=== PATIENT | female | born 1945 | race Caucasian/White ===

== ENCOUNTER → 2018-05-29 11:53 | Outpatient (CLI) | payer MEDICARE, OTHER, SELFPAY ==
--- NOTE | 2018-05-29 | DI.MG.S_ITS ---
BILATERAL DIGITAL SCREENING MAMMOGRAM 3D/2D WITH CAD: 05/29/2018 CLINICAL: Routine screening. Comparison is made to exams dated: 05/12/2017 mammogram, 04/11/2016 mammogram, and 03/07/2015 mammogram - [facility]. The tissue of both breasts is heterogeneously dense. This may lower the sensitivity of mammography. Current study was also evaluated with a Computer Aided Detection (CAD) system. There are benign post operative findings in the right breast. No significant masses, calcifications, or other findings are seen in either breast. There has been no significant interval change. IMPRESSION: There is no mammographic evidence of malignancy. A 1 year screening mammogram is recommended. This exam was interpreted at Station ID: [id number]. NOTE: For mammograms, a report in lay terms will be sent to the patient. Approximately 15% of breast malignancies will not be visualized mammographically. In the management of a palpable breast mass, a negative mammogram must not discourage biopsy of a clinically suspicious lesion. Electronically Signed By: Shravan umaña/clarisa:05/29/2018 16:22:20 letter sent: Normal Exam ACR BI-RADS Category 2: Benign Finding(s) 3342F
== END ==
PROVIDERS: Family Provider Internal Medicine; PCP Internal Medicine; Visit Provider Internal Medicine
DX: Z12.31 Encounter for screening mammogram for malignant neoplasm of breast (principal)
CPT/HCPCS: 77063; 77067

== ENCOUNTER 2018-12-23 10:45 | Outpatient (RCR) | payer MEDICARE, OTHER, SELFPAY ==
--- NOTE | 2018-12-13 08:00 | PT.OIE ---
Current Diagnoses Cystocele, unspecified (12/08/18) Pelvic muscle wasting (12/08/18) Other female genital prolapse (12/08/18) Past Medical History (Last Updated 12/06/18 @ 16:51 by Traci Banda) Bladder prolapse (Chronic ~2017) Cataracts, bilateral (Chronic ~2016) Migraines (Chronic ~1959) Tinnitus (Chronic ~2015) Past Surgical History (Last Updated 12/06/18 @ 16:51 by Traci Banda) Anesthesia (Resolved) History of right breast biopsy (Resolved ~2013) History of tonsillectomy (Resolved ~1955) Provider Visit Care Team Role Provider Type Mike Asher MD Primary Care Provider Physician Specialty: Internal Medicine Address: [address] [place], [place] [id number] Email: Lorena Busch MD Attending Provider Physician Specialty: CORN CUTTER OPERATOR Address: [address] [place] [id number] Email: [email or web address] Physical Therapy Initial Evaluation PT-OP-A Visit Information Start: 12/08/18 14:37 Freq: Status: Active Protocol: Document 12/08/18 14:37 [facility] (Rec: 12/08/18 14:49 [facility] [id number]) Out-Patient Physical Therapy Visit Information Visit Information Visit Type Initial Evaluation Visit Note 73 year old female with cystocele and pelvic pressure as the day progresses. She reports her pelvic region feels tired as the day goes on . No c/o urinary incontinence at this time. Visit Start Time 14:30 Visit Stop Time 15:15 Total Visit Minutes 45 Visit Number 1 Evaluation Information Evaluation Date 12/08/18 PT-OP-B Current Condition Start: 12/08/18 14:37 Freq: Status: Active Protocol: Document 12/08/18 14:37 [facility] (Rec: 12/08/18 14:49 [facility] [id number]) Current Condition History of Current Condition Onset Date May 2018 symptoms began Current Complaints pelvic floor weakness, pelvic organ heavyness worseing as the day goes on History of Current Condition 73 year old healthy Female with pelvic pressure and heaviness as the day progresses. She does have a cystecele and would like to strengthen her pelvic floor to prevent symptoms worsening. Treatment Goals Patient/Caregiver Goals Goals include reducing pelvic pressure and heaviness as well as improve pelvic floor strength and prevent further prolapse of the bladder Current Functional Impairments (Reported) Functional Limitations- Other limited with activities that require lifting and straining due to pelvic organ prolapse and pelvic pressure PT-OP-I Pelvic Floor Start: 12/10/18 09:35 Freq: Status: Active Protocol: Document 12/08/18 14:30 [facility] (Rec: 12/13/18 07:54 [facility] [email or web address]) Pelvic Floor Assessment Urine Pelvic Floor Surgery No Other Urinary Symptoms pelvic pressure and heavyness Pelvic Clock Pelvic Clock 12-3 Atrophy Pelvic Clock 3-6 Atrophy Pelvic Clock 6-9 Atrophy Pelvic Clock 9-12 Atrophy Prolapse Cystocele Grade 2 SEMG (uV) Baseline 0 10 Second Contraction 6.2 Recruitment Pattern Fair Relaxation Good Holding Fair Stability of Hold Fair SEMG Stability of Rest Good Contraction Ability Voluntary Contraction Weak Voluntary Relaxation Weak Manual Muscle Testing Left 2 Manual Muscle Testing Right 2 Manual Muscle Testing Anterior 2 Manual Muscle Testing Posterior 3 Muscle Endurance (Seconds) 5 Comments Pelvic Floor Comments EMG biofeedback average of 6.2 with max of 14.2, difficulty holding for endurance contractions PT-OP-M Strength Start: 12/13/18 07:54 Freq: Status: Active Protocol: Document 12/08/18 14:30 [facility] (Rec: 12/13/18 07:57 [facility] [email or web address]) Trunk Strength Trunk Manual Muscle Testing Core Stabilization 3/5 Transverse abdominal strength PT-OP-Q Treatments Start: 12/13/18 07:54 Freq: Status: Active Protocol: Document 12/08/18 14:30 [facility] (Rec: 12/13/18 07:57 [facility] [email or web address]) Therapeutic Exercises Supine Exercises 1 Supine Exercise Name ball squeeze Reps/Minutes x 10 with pelvic floor contraction Neuro Re-Education Treatment Other Activities 1 Details Neuromuscular re-ed of the pelvic floor Comments EMG biofeedback was used to facilitate the pelvic floor and for endurance training PT-OP-T Assessment and Plan Start: 12/10/18 09:35 Freq: Status: Active Protocol: Document 12/08/18 14:30 [facility] (Rec: 12/13/18 07:54 [facility] [email or web address]) Physical Therapy Assessment Rehab Potential Rehabilitation Potential Excellent Evaluation Complexity Number of Personal Factors/Comorbidities 0 Number of Body Systems Impaired 1-2 Clinical Presentation at Evaluation Stable Impairments Impairments Activity Tolerance Functional Activities Pain Strength Tone Other Impairments pelvic heavyness and pressure Goals Three Impairment Decreased endurance of the pelvic floor muscles Short Term Goal (STG) Improved endurance and Starla is able to sustain a contraction in supine x 10 seconds STG Duration 4 weeks Senior Care Goal (LTG) Improved endurance in standing and Starla is able to sustain a contraction for 5-10 seconds in standing. LTG Duration 8 weeks Two Impairment Decreased strength of the levator ani 2/5 MMT anterior and lateral Short Term Goal (STG) Improve facilitation of all parts of the levator ani using EMG biofeedback STG Duration 4 weeks Senior Care Goal (LTG) With strengthening Starla is able to improve her strength of the levator ani by one muscle grade or more for improved support of her bladder. LTG Duration 8 weeks One Impairment pelvic organ prolapse with symptoms of bulge and weakness Senior Care Goal (LTG) With pelvic floor strengthening and endurance training Starla is able to minimize her symptoms of pelvic organ prolapse and prevent further weakness and leakage. LTG Duration 8 weeks Assessment Summary Assessment Starla is a 73 year old female who began noticing symptoms of bladder prolapse in May of 2018. She reports that by the afternoon her pelvic floor is tired and she has pelvic pressure. She feels weak in her pelvic floor and core musculature. At this point she is not experiencing any urinary leakage. Her goals in PT are to strengthen her pelvic floor to prevent further prolapse and to minimize her pelvic fatigue as the day progresses. With examination today Starla is able to facilitate a contraction of all parts of the levator ani however she is weak. Her MMT is a 2/5 for all parts except the posterior wall which is 3/5 MMT. She has difficulty with endurance of her pelvic floor. I did feel a grade II cystocele today in supine position. EMG biofeedback was used today for NMRE of the pelvic floor and Starla felt this was very helpful to actually visualize her muscle contraction and see that her endurance was limited. She will do well with pelvic floor neuro re-ed and strengthening and is a good candidate for PT. Thank you for this referral Physical Therapy Plan Frequency and Duration Frequency of Treatment 1x/Week Duration of Treatment 8 weeks Plan of Care Start Date 12/08/18 Plan of Care End Date 01/28/19 Therapeutic Interventions Therapeutic Interventions Home Exercise Program Neuromuscular Re-education Patient/Caregiver Education Self-Care/Home Management Therapeutic Exercises Modalities Biofeedback Electric Stimulation Next Visit Focus/Plan Next Note Type Treatment Note Next Visit Plan Continue to progress pelvic floor strengthening and begin to add in hip stabilization exercises to assist the pelvic floor recruitment.
--- NOTE | 2018-12-13 08:00 | PT.OPPOC ---
Current Diagnoses Cystocele, unspecified (12/08/18) Pelvic muscle wasting (12/08/18) Other female genital prolapse (12/08/18) Provider Visit Care Team Role Provider Type Mike Asher MD Primary Care Provider Physician Specialty: Internal Medicine Address: [address] [place], [place] [id number] Email: Lorena Busch MD Attending Provider Physician Specialty: FIELD CROP FARM WORKER Address: [address] [place] [address], [id number] Email: [email or web address] Plan Of Care PT-OP-T Assessment and Plan Start: 12/10/18 09:35 Freq: Status: Active Protocol: Document 12/08/18 14:30 [facility] (Rec: 12/13/18 07:54 [facility] [email or web address]) Physical Therapy Assessment Rehab Potential Rehabilitation Potential Excellent Evaluation Complexity Number of Personal Factors/Comorbidities 0 Number of Body Systems Impaired 1-2 Clinical Presentation at Evaluation Stable Impairments Impairments Activity Tolerance Functional Activities Pain Strength Tone Other Impairments pelvic heaviness and pressure Goals Three Impairment Decreased endurance of the pelvic floor muscles Short Term Goal (STG) Improved endurance and Starla is able to sustain a contraction in supine x 10 seconds STG Duration 4 weeks Usp Goal (LTG) Improved endurance in standing and Starla is able to sustain a contraction for 5-10 seconds in standing. LTG Duration 8 weeks Two Impairment Decreased strength of the levator ani 2/5 MMT anterior and lateral Short Term Goal (STG) Improve facilitation of all parts of the levator ani using EMG biofeedback STG Duration 4 weeks Pipe Cleaning Machine Operator Goal (LTG) With strengthening Starla is able to improve her strength of the levator ani by one muscle grade or more for improved support of her bladder. LTG Duration 8 weeks One Impairment pelvic organ prolapse with symptoms of bulge and weakness Pipe Cleaning Machine Operator Goal (LTG) With pelvic floor strengthening and endurance training Starla is able to minimize her symptoms of pelvic organ prolapse and prevent further weakness and leakage. LTG Duration 8 weeks Assessment Summary Assessment Starla is a 73 year old female who began noticing symptoms of bladder prolapse in May of 2018. She reports that by the afternoon her pelvic floor is tired and she has pelvic pressure. She feels weak in her pelvic floor and core musculature. At this point she is not experiencing any urinary leakage. Her goals in PT are to strengthen her pelvic floor to prevent further prolapse and to minimize her pelvic fatigue as the day progresses. With examination today Starla is able to facilitate a contraction of all parts of the levator ani however she is weak. Her MMT is a 2/5 for all parts except the posterior wall which is 3/5 MMT. She has difficulty with endurance of her pelvic floor. I did feel a grade II cystocele today in supine position. EMG biofeedback was used today for NMRE of the pelvic floor and Starla felt this was very helpful to actually visualize her muscle contraction and see that her endurance was limited. She will do well with pelvic floor neuro re-ed and strengthening and is a good candidate for PT. Thank you for this referral Physical Therapy Plan Frequency and Duration Frequency of Treatment 1x/Week Duration of Treatment 8 weeks Plan of Care Start Date 12/08/18 Plan of Care End Date 01/28/19 Therapeutic Interventions Therapeutic Interventions Home Exercise Program Neuromuscular Re-education Patient/Caregiver Education Self-Care/Home Management Therapeutic Exercises Modalities Biofeedback Electric Stimulation Next Visit Focus/Plan Next Note Type Treatment Note Next Visit Plan Continue to progress pelvic floor strengthening and begin to add in hip stabilization exercises to assist the pelvic floor recruitment. Plan of Care Dates Plan of Care Start Date 12/08/18 Plan of Care End Date 01/28/19 Please Sign and Return: I have reviewed this Plan of Care and certify that the skilled therapy services above are required to meet the patient?s needs. Physician Signature Date Printed Name and Credentials Clinical Instructor Signature Printed Name and Credentials
--- NOTE | 2018-12-23 09:58 | PT.OTN ---
Current Diagnoses Cystocele, unspecified (12/15/18) Pelvic muscle wasting (12/15/18) Other female genital prolapse (12/15/18) Physical Therapy Treatment Note PT-OP-A Visit Information Start: 12/08/18 14:37 Freq: Status: Active Protocol: Document 12/15/18 14:30 [facility] (Rec: 12/23/18 09:57 [facility] [email or web address]) Out-Patient Physical Therapy Visit Information Visit Information Visit Type Treatment Note Visit Start Time 14:30 Visit Stop Time 15:15 Total Visit Minutes 45 Visit Number 2 PT-OP-B Current Condition Start: 12/08/18 14:37 Freq: Status: Active Protocol: Document 12/08/18 14:37 [facility] (Rec: 12/08/18 14:49 [facility] [id number]) Current Condition History of Current Condition Onset Date May 2018 symptoms began Current Complaints pelvic floor weakness, pelvic organ heavyness worseing as the day goes on History of Current Condition 73 year old healthy Female with pelvic pressure and heaviness as the day progresses. She does have a cystecele and would like to strengthen her pelvic floor to prevent symptoms worsening. Treatment Goals Patient/Caregiver Goals Goals include reducing pelvic pressure and heaviness as well as improve pelvic floor strength and prevent further prolapse of the bladder Current Functional Impairments (Reported) Functional Limitations- Other limited with activities that require lifting and straining due to pelvic organ prolapse and pelvic pressure PT-OP-I Pelvic Floor Start: 12/10/18 09:35 Freq: Status: Active Protocol: Document 12/08/18 14:30 [facility] (Rec: 12/13/18 07:54 [facility] [email or web address]) Pelvic Floor Assessment Urine Pelvic Floor Surgery No Other Urinary Symptoms pelvic pressure and heavyness Pelvic Clock Pelvic Clock 12-3 Atrophy Pelvic Clock 3-6 Atrophy Pelvic Clock 6-9 Atrophy Pelvic Clock 9-12 Atrophy Prolapse Cystocele Grade 2 SEMG (uV) Baseline 0 10 Second Contraction 6.2 Recruitment Pattern Fair Relaxation Good Holding Fair Stability of Hold Fair SEMG Stability of Rest Good Contraction Ability Voluntary Contraction Weak Voluntary Relaxation Weak Manual Muscle Testing Left 2 Manual Muscle Testing Right 2 Manual Muscle Testing Anterior 2 Manual Muscle Testing Posterior 3 Muscle Endurance (Seconds) 5 Comments Pelvic Floor Comments EMG biofeedback average of 6.2 with max of 14.2, difficulty holding for endurance contractions PT-OP-M Strength Start: 12/13/18 07:54 Freq: Status: Active Protocol: Document 12/08/18 14:30 [facility] (Rec: 12/13/18 07:57 [facility] [email or web address]) Trunk Strength Trunk Manual Muscle Testing Core Stabilization 3/5 Transverse abdominal strength PT-OP-Q Treatments Start: 12/13/18 07:54 Freq: Status: Active Protocol: Document 12/15/18 14:30 [facility] (Rec: 12/23/18 09:57 [facility] [email or web address]) Therapeutic Exercises Supine Exercises 4 Supine Exercise Name pelvic floor quick flicks 3 Supine Exercise Name pelvic floor long holds 2 Supine Exercise Name rollouts 1 Supine Exercise Name ball squeeze Reps/Minutes x 10 with pelvic floor contraction Neuro Re-Education Treatment Other Activities 1 Details Neuromuscular re-ed of the pelvic floor Comments EMG biofeedback was used to facilitate the pelvic floor and for endurance training PT-OP-T Assessment and Plan Start: 12/10/18 09:35 Freq: Status: Active Protocol: Document 12/15/18 14:30 [facility] (Rec: 12/23/18 09:57 [facility] [email or web address]) Physical Therapy Assessment Assessment Summary Assessment good tolerance of exercises today an no increase in symptoms. I did try a wedge with Starla today and she tolerated this well Physical Therapy Plan Next Visit Focus/Plan Next Note Type Treatment Note Next Visit Plan Continue to progress pelvic floor strengthening and hip stabilization exercises
--- NOTE | 2018-12-24 08:53 | PT.OTN ---
Current Diagnoses Cystocele, unspecified (12/23/18) Pelvic muscle wasting (12/23/18) Other female genital prolapse (12/23/18) Physical Therapy Treatment Note PT-OP-A Visit Information Start: 12/08/18 14:37 Freq: Status: Active Protocol: Document 12/23/18 10:45 [facility] (Rec: 12/24/18 08:52 [facility] [email or web address]) Out-Patient Physical Therapy Visit Information Visit Information Visit Type Treatment Note Visit Start Time 10:45 Visit Stop Time 11:30 Total Visit Minutes 45 Visit Number 3 PT-OP-B Current Condition Start: 12/08/18 14:37 Freq: Status: Active Protocol: Document 12/08/18 14:37 [facility] (Rec: 12/08/18 14:49 [facility] [id number]) Current Condition History of Current Condition Onset Date May 2018 symptoms began Current Complaints pelvic floor weakness, pelvic organ heavyness worseing as the day goes on History of Current Condition 73 year old healthy Female with pelvic pressure and heaviness as the day progresses. She does have a cystecele and would like to strengthen her pelvic floor to prevent symptoms worsening. Treatment Goals Patient/Caregiver Goals Goals include reducing pelvic pressure and heaviness as well as improve pelvic floor strength and prevent further prolapse of the bladder Current Functional Impairments (Reported) Functional Limitations- Other limited with activities that require lifting and straining due to pelvic organ prolapse and pelvic pressure PT-OP-I Pelvic Floor Start: 12/10/18 09:35 Freq: Status: Active Protocol: Document 12/08/18 14:30 [facility] (Rec: 12/13/18 07:54 [facility] [email or web address]) Pelvic Floor Assessment Urine Pelvic Floor Surgery No Other Urinary Symptoms pelvic pressure and heavyness Pelvic Clock Pelvic Clock 12-3 Atrophy Pelvic Clock 3-6 Atrophy Pelvic Clock 6-9 Atrophy Pelvic Clock 9-12 Atrophy Prolapse Cystocele Grade 2 SEMG (uV) Baseline 0 10 Second Contraction 6.2 Recruitment Pattern Fair Relaxation Good Holding Fair Stability of Hold Fair SEMG Stability of Rest Good Contraction Ability Voluntary Contraction Weak Voluntary Relaxation Weak Manual Muscle Testing Left 2 Manual Muscle Testing Right 2 Manual Muscle Testing Anterior 2 Manual Muscle Testing Posterior 3 Muscle Endurance (Seconds) 5 Comments Pelvic Floor Comments EMG biofeedback average of 6.2 with max of 14.2, difficulty holding for endurance contractions PT-OP-M Strength Start: 12/13/18 07:54 Freq: Status: Active Protocol: Document 12/08/18 14:30 [facility] (Rec: 12/13/18 07:57 [facility] [email or web address]) Trunk Strength Trunk Manual Muscle Testing Core Stabilization 3/5 Transverse abdominal strength PT-OP-Q Treatments Start: 12/13/18 07:54 Freq: Status: Active Protocol: Document 12/23/18 10:45 [facility] (Rec: 12/24/18 08:52 [facility] [email or web address]) Therapeutic Exercises Supine Exercises 4 Supine Exercise Name pelvic floor quick flicks Reps/Minutes 2 second holds with 4 seconds inbetween 3 Supine Exercise Name pelvic floor long holds Reps/Minutes 10 second holds x 10 reps 2 Supine Exercise Name rollouts 1 Supine Exercise Name ball squeeze Reps/Minutes x 10 with pelvic floor contraction Other Exercises 1 Other Exercise Name sit to stand with pelvic floor engagement Neuro Re-Education Treatment Other Activities 1 Details Neuromuscular re-ed of the pelvic floor Comments EMG biofeedback was used to facilitate the pelvic floor and for endurance training. Added in templates for eccentric control and coordination. PT-OP-T Assessment and Plan Start: 12/10/18 09:35 Freq: Status: Active Protocol: Document 12/23/18 10:45 [facility] (Rec: 12/24/18 08:52 [facility] [email or web address]) Physical Therapy Assessment Goals Three Impairment Decreased endurance of the pelvic floor muscles Short Term Goal (STG) Improved endurance and Starla is able to sustain a contraction in supine x 10 seconds GOAL MET STG Duration 4 weeks Director Special Education Goal (LTG) Improved endurance in standing and Starla is able to sustain a contraction for 5-10 seconds in standing. Starla is working on stading pelvic floor contractions at home LTG Duration 8 weeks Two Impairment Decreased strength of the levator ani 2/5 MMT anterior and lateral Short Term Goal (STG) Improve facilitation of all parts of the levator ani using EMG biofeedback GOAL MET STG Duration 4 weeks Director Special Education Goal (LTG) With strengthening Starla is able to improve her strength of the levator ani by one muscle grade or more for improved support of her bladder. GOOD PROGRESS LTG Duration 8 weeks One Impairment pelvic organ prolapse with symptoms of bulge and weakness Shelter Goal (LTG) With pelvic floor strengthening and endurance training Starla is able to minimize her symptoms of pelvic organ prolapse and prevent further weakness and leakage. Starla reports decreased c/o symptoms of pelvic pressure now LTG Duration 8 weeks Progress Towards Goals Progress Towards Goals Progressing Toward Goals Progress Comments Starla has made good progress towards her goals and has improved both pelvic floor endurance and strength Assessment Summary Assessment Starla is doing really well with her exercises and feels independent with her home program. She has increased her strength of her pelvic floor and her endurance is improved. Pelvic floor average is 9.5 uv and max of 18.8 uv. Her c/o pelvic pressure is reduced. She feels ready to work independently and will be discharged to a independent home program at this time. Physical Therapy Plan Discharge Physical Therapy Discharge Reasons Patient Request Discharge Comments Starla would like to continue her exercises at home as she feels independent with her home program.
== END 2018-12-24 13:07 | disposition home or self-care (01) ==
LOC: PHYS 10:45
PROVIDERS: PCP Internal Medicine; Visit Provider Specialist
DX: N81.10 Cystocele, unspecified (principal); N81.89 Other female genital prolapse; N81.84 Pelvic muscle wasting
CPT/HCPCS: 97110; 97112; 97161

== ENCOUNTER → 2019-08-20 11:43 | Outpatient (CLI) | payer MEDICARE, OTHER, SELFPAY ==
--- NOTE | 2019-08-20 11:46 | DI.MG.S_ITS ---
BILATERAL DIGITAL SCREENING MAMMOGRAM 3D/2D WITH CAD: 08/20/2019 CLINICAL: Routine screening. Comparison is made to exams dated: 05/29/2018 mammogram, 05/12/2017 mammogram, and 04/11/2016 mammogram - [facility]. The tissue of both breasts is heterogeneously dense. This may lower the sensitivity of mammography. Current study was also evaluated with a Computer Aided Detection (CAD) system. There are benign post operative findings in the right breast. No significant masses, calcifications, or other findings are seen in either breast. There has been no significant interval change. IMPRESSION: There is no mammographic evidence of malignancy. A 1 year screening mammogram is recommended. This exam was interpreted at Station ID: [id number]. NOTE: For mammograms, a report in lay terms will be sent to the patient. Approximately 15% of breast malignancies will not be visualized mammographically. In the management of a palpable breast mass, a negative mammogram must not discourage biopsy of a clinically suspicious lesion. Electronically Signed By: Jeffery virk/clarisa:08/20/2019 16:46:49 letter sent: Normal Exam ACR BI-RADS Category 2: Benign Finding(s) 3342F
== END ==
PROVIDERS: PCP Internal Medicine; Referring Provider Internal Medicine; Visit Provider Internal Medicine
DX: Z12.31 Encounter for screening mammogram for malignant neoplasm of breast (principal)
CPT/HCPCS: 77063; 77067

== ENCOUNTER → 2020-11-02 16:47 | Outpatient (CLI) | payer MEDICARE, OTHER, SELFPAY ==
--- NOTE | 2020-11-02 16:49 | DI.MG.S_ITS ---
BILATERAL DIGITAL SCREENING MAMMOGRAM 3D/2D WITH CAD: 11/02/2020 CLINICAL: Routine screening. Comparison is made to exams dated: 08/20/2019 mammogram, 05/29/2018 mammogram, 05/12/2017 mammogram, 04/11/2016 mammogram, and 03/07/2015 mammogram - [facility]. The tissue of both breasts is heterogeneously dense. This may lower the sensitivity of mammography. Current study was also evaluated with a Computer Aided Detection (CAD) system. There is a benign calcification in the left breast. There also are benign post operative findings in the right breast. No significant masses, calcifications, or other findings are seen in either breast. There has been no significant interval change. IMPRESSION: BENIGN There is no mammographic evidence of malignancy. A 1 year screening mammogram is recommended. This exam was interpreted at Station ID: [id number]. NOTE: For mammograms, a report in lay terms will be sent to the patient. Approximately 15% of breast malignancies will not be visualized mammographically. In the management of a palpable breast mass, a negative mammogram must not discourage biopsy of a clinically suspicious lesion. Electronically Signed By: Samir dewey/clarisa:11/06/2020 08:26:54 letter sent: Normal Exam ACR BI-RADS Category 2: Benign Finding(s) 3342F
== END ==
PROVIDERS: PCP Internal Medicine; Referring Provider Internal Medicine; Visit Provider Internal Medicine
DX: Z12.31 Encounter for screening mammogram for malignant neoplasm of breast (principal)
CPT/HCPCS: 77063; 77067

== ENCOUNTER → 2021-05-28 09:09 | Outpatient (CLI) | payer MEDICARE, OTHER, SELFPAY ==
--- NOTE | 2021-05-28 | DI.US.S_ITS ---
PROCEDURE: US ABDOMEN COMPLETE INDICATIONS: Unspecified abdominal pain TECHNIQUE: Real-time scanning was performed of the abdominal and retroperitoneal organs, with image documentation. COMPARISON: None. FINDINGS: Liver: Liver is normal in size and homogeneous in echotexture. Gallbladder: No findings of gallstones or sludge are seen. The gallbladder wall is not thickened, measuring 3 mm or less. No specific pericholecystic fluid is seen. The sonographic Dobbs sign is negative. Biliary ducts: Intrahepatic bile ducts are non-dilated. Extrahepatic bile duct caliber measures 4 mm. Normal is 6-7 mm or less in diameter, or 10 mm or less post-cholecystectomy. Pancreas: Visualized portions of the pancreas are sonographically normal. Spleen: Spleen is normal in size and homogeneous in echotexture. Kidneys: Kidneys are normal in size and echotexture. Right kidney measures 9.3 cm long; left kidney measures 8.9 cm long. No hydronephrosis or nephrolithiasis. No solid masses. Aorta: Visualized aorta is normal in caliber at less than 3 cm. Iliacs: Proximal common iliac arteries are normal in caliber at less than 2.5 cm. IVC: Intrahepatic inferior vena cava is patent. Miscellaneous: No free abdominal fluid. IMPRESSION: Normal ultrasound. The gallbladder demonstrates a normal sonographic appearance. No biliary dilatation is seen. Dictated by: Vincent Pascal M.D. on 05/28/2021 at 9:53 Approved by: Vincent Pascal M.D. on 05/28/2021 at 9:54
== END ==
PROVIDERS: PCP Internal Medicine; Referring Provider Internal Medicine; Visit Provider Internal Medicine
DX: R10.9 Unspecified abdominal pain (principal)
CPT/HCPCS: 76700

== ENCOUNTER 2022-01-15 15:14 | Emergency (ER) | payer MEDICARE, OTHER, SELFPAY ==
[2022-01-15] VITALS (11 sets, daily range): BP systolic 101–136; BP diastolic 63–82; PULSE 76–143; RESP 12–24; O2SAT 96–98
--- NOTE | 2022-01-15 15:26 | DI.RAD.S_ITS ---
PROCEDURE: XR CHEST 1V INDICATIONS: chest pain TECHNIQUE: One view of the chest was acquired. COMPARISON: [facility], , CHEST 1 VIEW, 09/21/2014, 14:56. FINDINGS: Surgical changes and devices: Right breast clips. Lungs and pleura: Lungs appear clear. No pleural effusions or pneumothorax. Mediastinum: Mediastinal contours appear unchanged. Heart size is within normal limits. Bones and chest wall: No suspicious bony lesions. Overlying soft tissues appear unremarkable. IMPRESSION: No acute cardiopulmonary abnormality. Dictated by: Samir Morrell M.D. on 01/15/2022 at 16:43 Approved by: Samir Morrell M.D. on 01/15/2022 at 16:43
[2022-01-15 16:02] LABS: Add Manual Diff / Slide Review NO; Basophils Absolute Auto 100 /uL (0-100); Basophils Percent Auto 0.8 % (0-2); Eosinophils Absolute Auto 100 /uL (0-450); Eosinophils Percent Auto 1.2 % (2-4); Hematocrit 41.9 % (36-46); Hemoglobin 14.3 g/dL (12.0-16.0); Lymphocytes Absolute Auto 3500 /uL (1100-4500); Lymphocytes Percent Auto 39.5 % (25-40); Mean Corpuscular HGB Conc 34.1 % (30-36); Mean Corpuscular Hemoglobin 30.7 PG (26-34); Mean Corpuscular Volume 89.9 fL (80-100); Monocytes Absolute Auto 700 /uL (0-900); Monocytes Percent Auto 7.8 % (3-14); Neutrophils Absolute Auto 4500 /uL (1500-7000); Neutrophils Percent Auto 50.7 % (50-75); Platelet Count 209 X10^3/uL (150-400); Red Blood Cell Count 4.66 X10^6/uL (4.0-5.2); White Blood Cell Count 8.9 X10^3/uL (4.5-11.0)
[2022-01-15 16:08] LABS: Alanine Aminotransferase 23 IU/L (<35); Albumin 4.9 g/dL (3.5-5.0); Albumin Globulin Ratio 1.6 (1.0-2.8); Alkaline Phosphatase 69 U/L (38-126); Aspartate Aminotransferase 37 IU/L (14-36); BUN Creatinine Ratio 12.6 (6-22); Bilirubin Total 0.9 mg/dL (0.2-1.3); Blood Urea Nitrogen 15 mg/dL (7-17); Calcium 10.1 mg/dL (8.4-10.2); Carbon Dioxide 27 mmol/L (22-32); Chloride 102 mmol/L (98-107); Creatine Kinase 152 U/L (30-135); Estimated Glomerular Filt Rate 47 mL/min (>60); Glucose 158 mg/dL (80-110); HEMOLYSIS < 15 (0-50); Lipase 74 U/L (23-300); Magnesium 2.1 mg/dL (1.6-2.3); Potassium 4.3 mmol/L (3.4-5.1); Sodium 140 mmol/L (137-145); Total Protein 7.9 g/dL (6.3-8.2)
[2022-01-15 16:17] LABS: Troponin I < 0.012 ng/mL (0.01-0.034)
--- NOTE | 2022-01-15 16:17 | ED_ITS ---
HPI - Arrhythmia/Palpitations General Chief Complaint: Arrhythmia/Palpitations Stated Complaint: heart racing, almost syncopal episode Time Seen by Provider: 01/15/22 16:04 Source: patient Mode of arrival: Ambulatory History of Present Illness HPI narrative: 76-year-old woman who reports to the ED with fast heart rate. At noon today she noticed that she felt a little bit lightheaded for a few moments and it passed on its own. At around 2:00 a.m. she noticed that her heart was pounding quite vigorously and she was concerned about and came to the emergency department. Her Jon is a retired anesthesiologist and he accompanies her today. She denies any similar symptoms previously. She does not feel short of breath right now nor did she have chest pain. She denies any known cardiac disease pulmonary disease metabolic disease or cancer or stroke. She denies any recent illness such as fever cough chills nausea vomiting diarrhea. She is a nonsmoker. She drinks less than a full glass of wine nightly with dinner. Related Data Previous Rx's Medication Instructions Recorded apixaban 5 mg (74 tabs) tablets in 5 mg PO BID #74 ea 01/15/22 a dose pack (Eliquis DVT-PE Treat 30D Start) metoprolol succinate 25 mg 12.5 mg PO DAILY #30 tabs 01/15/22 tablet,extended release 24 hr Allergies Allergy/AdvReac Type Severity Reaction Status Date / Time Sulfadiazine Allergy Unknown UNKNOWN Uncoded 10/08/17 12:53 Patient History Medical History (Updated 01/15/22 @ 18:37 by Neo Holland MD) Bladder prolapse (~2017) Cataracts, bilateral (~2016) Migraines (~1960) Tinnitus (~2016) Surgical History (Updated 12/06/18 @ 16:51 by Traci Banda) Anesthesia History of right breast biopsy (~2013) History of tonsillectomy (~1956) Family History (Updated 12/06/18 @ 16:52 by Traci Banda) Father Pancreatitis Mother Cancer Brother Cancer Social History Smoking Status: Never smoker Smoking Status: Never smoker Exam Initial Vital Signs Initial Vital Signs: Vital Signs Pulse Rate 120 H 01/15/22 15:18 Respiratory Rate 22 01/15/22 15:18 Blood Pressure 136/82 01/15/22 15:18 Pulse Oximetry 98 01/15/22 15:18 Oxygen Delivery Method 01/15/22 15:18 Scores CHADS-VASc Congestive heart failure: no Hypertension: no Age 75 years or older: yes Diabetes mellitus: no Stroke, TIA, or TE: no Vascular disease: no Age 65 to 74 years: no Sex category (female): Female CHADS-VASc Score: 3 Course Orders Ordered: ED Orders 01/15/22 15:26 XR chest 1V Stat EKG-12 Lead Stat 01/15/22 15:30 Complete Blood Count AUTO DIFF Stat Comprehensive Metabolic Panel Stat Lipase Stat Magnesium Stat Troponin & CK Cardiac Panel Stat 01/15/22 15:55 COVID19 -Nasal RAPID/Pre-Proc Stat 01/15/22 16:45 Urine Culture Stat Urine Microscopic Stat Vital Signs Vital signs: Vital Signs - 8 hr 01/15/22 15:18 01/15/22 15:29 01/15/22 15:30 Pulse Rate 120 H 143 H 136 H Respiratory Rate 22 15 18 Blood Pressure 136/82 Pulse Oximetry 98 Oxygen Delivery Method Room Air 01/15/22 15:49 01/15/22 15:49 01/15/22 16:00 Pulse Rate 130 H Respiratory Rate 12 Blood Pressure 124/74 101/67 Pulse Oximetry 97 Oxygen Delivery Method 01/15/22 16:00 01/15/22 16:30 01/15/22 16:31 Pulse Rate 127 H 113 H Respiratory Rate 21 12 Blood Pressure 135/67 Pulse Oximetry 97 96 Oxygen Delivery Method 01/15/22 16:31 01/15/22 17:00 01/15/22 17:00 Pulse Rate 124 H 90 Respiratory Rate 14 Blood Pressure 103/67 Pulse Oximetry 96 97 Oxygen Delivery Method 01/15/22 17:30 01/15/22 17:30 01/15/22 18:00 Pulse Rate 81 Respiratory Rate 13 Blood Pressure 104/63 108/64 Pulse Oximetry 96 Oxygen Delivery Method 01/15/22 18:00 Pulse Rate 80 Respiratory Rate 13 Blood Pressure Pulse Oximetry 96 Oxygen Delivery Method MDM - Arrhythmia/Palpitations Lab Data Result diagrams: 01/15/22 15:30 01/15/22 15:30 Labs: Lab Results 01/15/22 01/15/22 01/15/22 Range/Units 15:30 15:30 15:55 WBC 8.9 (4.5-11.0) X10^3/uL RBC 4.66 (4.0-5.2) X10^6/uL Hgb 14.3 (12.0-16.0) g/dL Hct 41.9 (36-46) % MCV 89.9 (80-100) fL MCH 30.7 (26-34) PG MCHC 34.1 (30-36) % RDW 13.0 (11.6-14.8) % Plt Count 209 (150-400) X10^3/uL Neut % (Auto) 50.7 (50-75) % Lymph % (Auto) 39.5 (25-40) % [place] % (Auto) 7.8 (3-14) % Eos % (Auto) 1.2 L (2-4) % Baso % (Auto) 0.8 (0-2) % Neut # (Auto) 4500 (3585-8702) /uL Lymph # (Auto) 3500 (2428-3831) /uL [place] # (Auto) 700 (0-900) /uL Eos # (Auto) 100 (0-450) /uL Baso # (Auto) 100 (0-100) /uL Sodium 140 (137-145) mmol/L Potassium 4.3 (3.4-5.1) mmol/L Chloride 102 (98-107) mmol/L Carbon Dioxide 27 (22-32) mmol/L BUN 15 (7-17) mg/dL Creatinine 1.19 H (0.52-1.04) mg/dL Estimated GFR 47 L (>60) mL/min BUN/Creatinine Ratio 12.6 (6-22) Glucose 158 H (80-110) mg/dL Calcium 10.1 (8.4-10.2) mg/dL Magnesium 2.1 (1.6-2.3) mg/dL Total Bilirubin 0.9 (0.2-1.3) mg/dL AST 37 H (14-36) IU/L ALT 23 (<35) IU/L Alkaline Phosphatase 69 (38-126) U/L Total Creatine Kinase 152 H (30-135) U/L CK-MB (CK-2) 3.54 H (<2.37) ng/mL CK-MB (CK-2) Rel Index 2.3 (1.5-5.0) % Troponin I < 0.012 (0.01-0.034) ng/mL Total Protein 7.9 (6.3-8.2) g/dL Albumin 4.9 (3.5-5.0) g/dL Globulin 3.0 (1.7-4.1) g/dL Albumin/Globulin Ratio 1.6 (1.0-2.8) Lipase 74 (23-300) U/L Urine RBC (0-5/HPF) Urine WBC (0-5/HPF) Ur Squamous Epith Cells (0-5/HPF) Ur Transition Epith Cell (0-5/HPF) Urine Bacteria (None) Ur Culture Indicated? SARS-CoV-2 (PCR) Negative (Negative) 01/15/22 Range/Units 16:45 WBC (4.5-11.0) X10^3/uL RBC (4.0-5.2) X10^6/uL Hgb (12.0-16.0) g/dL Hct (36-46) % MCV (80-100) fL MCH (26-34) PG MCHC (30-36) % RDW (11.6-14.8) % Plt Count (150-400) X10^3/uL Neut % (Auto) (50-75) % Lymph % (Auto) (25-40) % [place] % (Auto) (3-14) % Eos % (Auto) (2-4) % Baso % (Auto) (0-2) % Neut # (Auto) (8227-3833) /uL Lymph # (Auto) (8159-4811) /uL [place] # (Auto) (0-900) /uL Eos # (Auto) (0-450) /uL Baso # (Auto) (0-100) /uL Sodium (137-145) mmol/L Potassium (3.4-5.1) mmol/L Chloride (98-107) mmol/L Carbon Dioxide (22-32) mmol/L BUN (7-17) mg/dL Creatinine (0.52-1.04) mg/dL Estimated GFR (>60) mL/min BUN/Creatinine Ratio (6-22) Glucose (80-110) mg/dL Calcium (8.4-10.2) mg/dL Magnesium (1.6-2.3) mg/dL Total Bilirubin (0.2-1.3) mg/dL AST (14-36) IU/L ALT (<35) IU/L Alkaline Phosphatase (38-126) U/L Total Creatine Kinase (30-135) U/L CK-MB (CK-2) (<2.37) ng/mL CK-MB (CK-2) Rel Index (1.5-5.0) % Troponin I (0.01-0.034) ng/mL Total Protein (6.3-8.2) g/dL Albumin (3.5-5.0) g/dL Globulin (1.7-4.1) g/dL Albumin/Globulin Ratio (1.0-2.8) Lipase (23-300) U/L Urine RBC 0-1/hpf (0-5/HPF) Urine WBC 10-30/hpf H (0-5/HPF) Ur Squamous Epith Cells 1-5 /hpf (0-5/HPF) Ur Transition Epith Cell 1-5/hpf (0-5/HPF) Urine Bacteria Few (2-10) H (None) Ur Culture Indicated? Specimen cultured SARS-CoV-2 (PCR) (Negative) Urine Dip Bedside Urine Glucose Negative Bedside Urine Bilirubin - Negative Bedside Urine Ketone - Negative Urine Specific [place] 1.015 Bedside Urine Occult Blood - Negative Bedside Urine pH 6.5 Bedside Urine Protein - Negative Bedside Urine Urobilinogen - Negative Bedside Urine Nitrite - Negative Bedside Urine Leukocytes + 70 Esterase Imaging Data Chest x-ray: Radiologist's Impresson: IMPRESSION:? No acute cardiopulmonary abnormality. ? ? ? Dictated by: Samir Morrell M.D. on 01/15/2022 at 16:43 ? ? Approved by: Samir Morrell M.D. on 01/15/2022 at 16:43? ECG Data Interpretation: ECG obtained at 3:42 p.m. reveals atrial fibrillation at a rate of 127 beats per minute. No acute ST or T-wave changes. MDM Narrative Medical decision making narrative: I had a lengthy discussion with the patient about the risks and benefits of treating atrial fibrillation with anticoagulant. She understands that her risk of stroke is markedly less if she is taking a oral anticoagulant. She declines treatment at this time. I have sent prescriptions to the local pharmacy in case she changes her mind. I encouraged her to follow-up the primary care doctor. She converted spontaneously to sinus rhythm. I did prescribe metoprolol to take as needed Discharge Plan Departure Patient Disposition: Home Clinical Impression: Atrial fibrillation Instructions: DI for Atrial Fibrillation Activity Restrictions/Additional Instructions: You had atrial fibrillation today which has spontaneously converted into a sinus rhythm. I discussed the case with Dr. Hudson from Cardiology. She and I are in agreement that an anticoagulant such as a Olea after warfarin would be indicated in this case. Also would recommend a low-dose metoprolol. You have declined this for now which I respect. I encouraged her to discuss this with your primary care provider in the coming days. If you have recurrent symptoms, especially if they are associated with shortness of breath or chest pain or lightheadedness, or encouraged to return to the emergency department for immediate treatment. If you are in atrial fibrillation your opportunity for immediate cardioversion is not available past 24 hours of symptoms. I have sent prescriptions to the pharmacy at [facility] if you choose to use them. Prescriptions: Yaya Zazueta DVT-PE Treat 30D Start 5 mg (74 tabs) tablets,dose pack 5 mg PO BID Qty: 74 0RF metoprolol succinate 25 mg tablet extended release 24 hr 12.5 mg PO DAILY Qty: 30 0RF Referrals: Mike Asher MD [Primary Care Provider] -
[2022-01-15 16:23] LABS: CKMB % Relative Index 2.3 % (1.5-5.0); Creatine Kinase MB 3.54 ng/mL (<2.37)
[2022-01-15 16:47] LABS: COVID19 -Nasal RAPID Negative (Negative)
[2022-01-15 17:06] LABS: Bacteria Urine Few (2-10); Culture Indicated Urine Specimen Cultured; RBC Urine 0-1/HPF (0-5/HPF); Squamous Epithelial Cell Urine 1-5 /HPF (0-5/HPF); Transitional Epi Cells Urine 1-5/HPF (0-5/HPF); WBC Urine 10-30/HPF (0-5/HPF)
--- NOTE | 2022-01-15 17:58 | PC.NURSE ---
Addendum entered by Eleanor Bailey R.N. 01/15/22 17:58: Dr. Holland aware. repeat ekg Original Note: pt converted to SR
== END 2022-01-15 18:55 | disposition home or self-care (01) ==
PROVIDERS: Emergency Provider Family Medicine Addiction Medicine; PCP Internal Medicine
DX: I48.91 Unspecified atrial fibrillation (principal); Z79.01 Long term (current) use of anticoagulants; Z20.822 Contact with and (suspected) exposure to COVID-19
CPT/HCPCS: 36415; 71045; 80053; 81003; 81015; 82550; 82553; 83690; 83735; 84484; 85025; 87086; 87635; 93005; 93010; 99284; C9803

== ENCOUNTER → 2022-02-25 12:27 | Outpatient (CLI) | payer MEDICARE, OTHER, SELFPAY ==
--- NOTE | 2022-02-25 | DI.ECHO.S_ITS ---
[facility]---------+ [facility] +---------+ : : [address] [place] : : : : [id number] : : : : Phone: [phone]+ Echocardiogram Report + + :Name: TATIANA JHA Study Date: 02/25/2022 Height: 62 in : :[facility] ReadingLocation: Weight: 141 lb : : Gender: Female BSA: 1.6 m2 : :: 1945 Age: 77 yrs BP: 133/77 mmHg: :Reason For Study: ATRIAL FIBRILLATION : :Ordering Physician: MELISSA, : :SETH Performed By: Leanne Blanc : :Referring: SETH TORRES : + + Interpretation Summary 1) Normal left ventricular thickness and size with low normal systolic function (EF 50-55%). 2) Normal right ventricular size and function. 3) There is mild to moderate mitral regurgitation. 4) No prior Echo available for comparison. Procedure: A two-dimensional transthoracic echocardiogram with color flow and Doppler was performed. The study quality was technically adequate. There is no prior echocardiogram noted for this patient. The patient was in sinus bradycardia with heart rates between 58-71 bpm during the exam. Left Ventricle: The left ventricle is normal in size and wall thickness. The ejection fraction is estimated to be 50-55%. There are no focal wall motion abnormalities. Right Ventricle: The right ventricle is normal in size and function. Atria: The left atrium is mildly dilated. Right atrial size is normal. There is no Doppler evidence for an interatrial shunt. Mitral Valve: The mitral valve is normal in structure and function. There is mild to moderate mitral regurgitation. Aortic Valve: The aortic valve is trileaflet. The aortic valve opens well. There is no aortic valve stenosis. There is trace aortic regurgitation. Tricuspid Valve: The tricuspid valve is normal in structure and function. There is mild tricuspid regurgitation. The right ventricular systolic pressure is estimated to be at least 20 mmHg based on an estimated right atrial pressure of 3 mm Hg. Pulmonic Valve: The pulmonic valve leaflets are thin and pliable; valve motion is normal. There is mild pulmonic regurgitation. Great Vessels: The aortic root is normal size. The dimensions of the ascending aorta are normal. The IVC is of normal diameter and collapses greater than 50% with a sniff. This suggests a low right atrial pressure of 3 mm Hg. Pericardium/ Pleura There is no pericardial effusion. There is no pleural effusion. MMode/2D Measurements & Calculations LVIDd: 4.6 cm LVOT diam: 2.1 cm LVIDs: 3.1 cm Ao root diam: 2.9 cm FS: 32.2 % asc Aorta Diam: 2.9 cm EPSS: 0.59 cm Ao Arch Diam (Prox Trans): 2.6 cm IVSd: 0.92 cm LVPWd: 0.67 cm LV cardenas. diameter/BSA (cm/m^2): 2.8 LV sys. diameter/BSA (cm/m^2): 1.9 LA A2 area: 20.7 cm2 RA long axis: 5.3 cm LA A4 area: 16.7 cm2 RA area: 16.8 cm2 LA length (vol): 5.3 cm RA vol: 45.4 ml LA vol: 55.4 ml RA : 27.5 ml/m2 LA vol index: 33.6 ml/m2 IVC diam: 1.5 cm RVD1 (basal): 3.1 cm RVD2 (mid): 2.4 cm TAPSE: 2.4 cm Doppler Measurements & Calculations Ao V2 max: 117.7 cm/sec LVOT Max Dante: 73.9 cm/sec Ao V2 mean: 85.2 cm/sec LV V1 max P.2 mmHg Ao max P.5 mmHg LV V1 VTI: 15.9 cm Ao mean P.2 mmHg KASSIDY(I,D): 2.3 cm2 Ao V2 VTI: 24.3 cm KASSIDY(V,D): 2.2 cm2 sev ratio: 0.65 KASSIDY indexed to BSA (cm^2/m^2): 1.4 MV E max dante: 50.0 cm/sec TR max dante: 207.7 cm/sec MV A max dante: 68.4 cm/sec TR max P.3 mmHg MV E/A: 0.73 PA V2 max: 85.0 cm/sec Med Peak E' Dante: 5.2 cm/sec PA V2 mean: 61.6 cm/sec E/E' med: 9.6 PA mean P.7 mmHg Lat Peak E' Dante: 6.0 cm/sec PA pr(Accel): 36.2 mmHg E/E' lat: 8.3 E/e' average: 9.0 MV dec time: 0.35 sec MR ERO: 0.14 cm2 MR PISA: 2.7 cm2 SV(LVOT): 55.0 ml MR flow rate: 70.5 cm3/sec MR PISA radius: 0.65 cm Reading Physician:03:56 PM
== END ==
PROVIDERS: PCP Student in an Organized Health Care Education/Training Program; Referring Provider Student in an Organized Health Care Education/Training Program; Visit Provider Student in an Organized Health Care Education/Training Program
DX: I08.1 Rheumatic disorders of both mitral and tricuspid valves (principal); I48.91 Unspecified atrial fibrillation
CPT/HCPCS: 93306

== ENCOUNTER → 2022-10-09 14:40 | Outpatient (CLI) | payer MEDICARE, OTHER, SELFPAY ==
--- NOTE | 2022-10-09 | DI.MG.S_ITS ---
BILATERAL DIGITAL SCREENING MAMMOGRAM 3D/2D WITH CAD: 10/09/2022 CLINICAL: Routine screening. Comparison is made to exams dated: 11/02/2020 mammogram, 08/20/2019 mammogram, and 05/29/2018 mammogram - [facility]. Both breasts are heterogeneously dense, which may obscure small masses (category c / 51-75% glandular tissue). Current study was also evaluated with a Computer Aided Detection (CAD) system. There is a benign calcification in the left breast. There also are benign post operative findings in the right breast. No significant masses, calcifications, or other findings are seen in either breast. There has been no significant interval change. IMPRESSION: BENIGN There is no mammographic evidence of malignancy. A 1 year screening mammogram is recommended. Based on the Tyrer Cuzick model (a risk assessment model) the patient's lifetime risk is 18.7% and her 10 year risk is 0.0%. According to the ACR, ACS, and NCCN guidelines, an annual breast MRI exam along with mammogram is recommended if the patient's lifetime risk is 20% or greater. This exam was interpreted at Station ID: [id number]. NOTE: For mammograms, a report in lay terms will be sent to the patient. Approximately 15% of breast malignancies will not be visualized mammographically. In the management of a palpable breast mass, a negative mammogram must not discourage biopsy of a clinically suspicious lesion. Electronically Signed By: Lamar dalton/clarisa:10/09/2022 17:21:56 letter sent: Normal Exam ACR BI-RADS Category 2: Benign Finding(s) 3342F
== END ==
PROVIDERS: PCP Student in an Organized Health Care Education/Training Program; Referring Provider Student in an Organized Health Care Education/Training Program; Visit Provider Student in an Organized Health Care Education/Training Program
DX: Z12.31 Encounter for screening mammogram for malignant neoplasm of breast (principal)
CPT/HCPCS: 77063; 77067

== ENCOUNTER → 2023-10-13 14:21 | Outpatient (CLI) | payer MEDICARE, OTHER, SELFPAY ==
--- NOTE | 2023-10-13 14:23 | DI.MG.S_ITS ---
BILATERAL DIGITAL SCREENING MAMMOGRAM 3D/2D WITH CAD: 10/13/2023 CLINICAL: Routine screening. Comparison is made to exams dated: 10/09/2022 mammogram, 11/02/2020 mammogram, and 08/20/2019 mammogram - [facility]. Both breasts are heterogeneously dense, which may obscure small masses (category c / 51-75% glandular tissue). Current study was also evaluated with a Computer Aided Detection (CAD) system. There is a benign calcification in the left breast. There also are benign vascular calcifications in both breasts. Additionally, there are benign post operative findings in the right breast. No significant masses, calcifications, or other findings are seen in either breast. There has been no significant interval change. IMPRESSION: BENIGN There is no mammographic evidence of malignancy. A 1 year screening mammogram is recommended. Based on the Tyrer Cuzick model (a risk assessment model) the patient's lifetime risk is 16.7% and her 10 year risk is 0.0%. According to the ACR, ACS, and NCCN guidelines, an annual breast MRI exam along with mammogram is recommended if the patient's lifetime risk is 20% or greater. This exam was interpreted at Station ID: [id number]. NOTE: For mammograms, a report in lay terms will be sent to the patient. Approximately 15% of breast malignancies will not be visualized mammographically. In the management of a palpable breast mass, a negative mammogram must not discourage biopsy of a clinically suspicious lesion. Electronically Signed By: Lamar dalton/clarisa:10/13/2023 16:19:43 letter sent: Normal Exam ACR BI-RADS Category 2: Benign Finding(s) 3342F
== END ==
PROVIDERS: PCP Student in an Organized Health Care Education/Training Program; Referring Provider Student in an Organized Health Care Education/Training Program; Visit Provider Student in an Organized Health Care Education/Training Program
DX: Z12.31 Encounter for screening mammogram for malignant neoplasm of breast (principal); R92.333 Mammographic heterogeneous density, bilateral breasts
CPT/HCPCS: 77063; 77067

== ENCOUNTER 2024-01-22 11:53 | Day surgery (SDC) | payer MEDICARE, OTHER, SELFPAY ==
[2024-01-20 11:00] VITALS: BMI 26.2
[2024-01-22] VITALS (7 sets, daily range): BP systolic 114–147; BP diastolic 66–84; PULSE 69–78; RESP 12–17; TEMP 36.1–36.7; O2SAT 96–99; BMI 25.6
[2024-01-22] MEDS: ACETAMINOPHEN 325 MG TABLET 975 MG PO (12:34)
[2024-01-22] MEDS: LACTATED RINGERS 1,000 ML 42 ML IV (12:34)
[2024-01-22] MEDS: CEFAZOLIN 2 GM/100 ML PREMIX 100 ML IV (13:24)
--- NOTE | 2024-01-22 13:36 | SUR.OPER ---
Lithotomy on padded OR bed, head on pillow, arms secured on padded arm boards at <90 degrees abduction. Legs secured in padded yellow fins stirrups.
[2024-01-22] MEDS: BUPIVACAINE 0.5% (PF) 30 ML, EPINEPHrine 0.15 MG INJ (13:39)
--- NOTE | 2024-01-22 14:51 | PM.PREOP ---
Pre-operative Note Interval Note History & Physical reviewed/Exam performed by Physician: Yes Changes to H&P: No
--- NOTE | 2024-01-22 14:51 | PM.OP.1 ---
Operative Date/Time/Diagnoses Date of procedure: 01/22/24 Time of procedure: 14:51 Pre-op diagnosis: Total uterine prolapse Post-op diagnosis: same Procedure & Clinicians Procedure: LeFort colpocleisis Same procedure as scheduled: Yes Indications: Total uterine prolapse Surgeon: Lorena Busch Click Yes if Unassisted: Yes Anesthesia Type: General Operative Notes Findings: Total uterine prolapse Closure Type: primary Specimen(s): none sent Estimated Blood Loss (mL): 25 Blood products transfused: none Procedure in detail: The patient was brought to the operating room where she was in a supine position in [facility] and underwent a light general anesthetic. She was prepped and draped in the usual sterile fashion. Her bladder was drained. 2 g of Ancef were in prior to beginning of the case. Warming was in place. Pulsatile stockings were in place. Area on anterior and posterior wall of the prolapse were marked with a marking pen and injected with a dilute solution of half percent Marcaine with epinephrine. The skin was incised with a scalpel and undermined with and removed removed with Metzenbaum scissors and cautery. 0 Vicryl suture interrupted was placed from the anterior cervical fascia to the posterior cervical fascia to invert the cervix. 2-0 Vicryl suture was used in an interrupted fashion to close anterior to posterior on the sides creating a tunnel from the cervix to the external area The vaginal incision was closed from anterior to posterior fully inverting the uterus. The area of the bladder urethral junction was injected with the 0.5% Marcaine with epinephrine. An incision was made and dissection undertaken laterally. 2 plication sutures of 0 Vicryl suture were used to support the bladder neck. Small amount of excess tissue was removed. The vaginal incision was closed with 2 0 Vicryl suture. Counts of instruments and sponges were correct. Patient went to recovery room in good condition. Post-operative Condition: stable Disposition: same day surgery Plan for aftercare: Home when awake and stable.
--- NOTE | 2024-01-22 16:20 | SUR.PHASEII ---
Patient making second attempt to void without success. Denies any discomfort. Drinking PO fluids without difficulty. Placed patient back in stretcher with warm blankets and more juice provided. LR 500 ml bolus initiated to encourage bladder void.
[2024-01-22] MEDS: LACTATED RINGERS 1,000 ML 999 ML IV (16:23)
== END 2024-01-22 16:55 | disposition home or self-care (01) ==
PROVIDERS: PCP Student in an Organized Health Care Education/Training Program; Referring Provider Specialist; Visit Provider Specialist
PROC: (CPT 57120; principal; 2024-01-22 13:30)
DX: N81.3 Complete uterovaginal prolapse (principal); N81.4 Uterovaginal prolapse, unspecified
CPT/HCPCS: 57120; J0171; J0690; J2405; J2704; J3010

== ENCOUNTER → 2024-10-26 14:29 | Outpatient (CLI) | payer MEDICARE, OTHER, SELFPAY ==
--- NOTE | 2024-10-26 14:31 | DI.MG.S_ITS ---
MM screening mammo BI: 10/26/2024. BI-RADS: 2 CLINICAL: 79-year old female for bilateral screening mammogram. Tyrer-Cuzick lifetime risk of 1.9%. No personal or first-degree family history of breast cancer. The patient had a prior right breast biopsy. PRIOR EXAMS 10/13/2023, 10/09/2022, 11/02/2020, 08/20/2019, 05/29/2018, 05/12/2017, 04/11/2016, 03/07/2015. MAMMOGRAPHY TECHNIQUE: 2D and 3D (tomosynthesis) digital mammographic views obtained, with additional images as needed for full coverage. Current study was also evaluated with a Computer Aided Detection (CAD) system. DENSITY C. The breasts are heterogeneously dense, which may obscure small masses. MAMMOGRAPHY FINDINGS Right: Surgical clip present on the right. Typically-benign vascular calcifications noted. No significant change from comparison. Left: Typically-benign vascular calcifications noted. No significant change from comparison. IMPRESSION: * No evidence of malignancy with benign findings. RECOMMENDATIONS Bilateral * Annual screening mammography. OVERALL ASSESSMENT CATEGORY BI-RADS-2: Benign. The [employer] recommends annual screening mammography beginning at age 40 for women with average risk of breast cancer. ELECTRONICALLY SIGNED: Radha Reis M.D. on 10/26/2024 at 05:37:48 PM PT Interpreting Station ID: [id number]
== END ==
LOC: MAMMO 14:30
PROVIDERS: PCP Family Medicine; Referring Provider Family Medicine; Visit Provider Family Medicine
DX: Z12.31 Encounter for screening mammogram for malignant neoplasm of breast (principal); R92.333 Mammographic heterogeneous density, bilateral breasts
CPT/HCPCS: 77063; 77067

== ENCOUNTER → 2024-12-16 09:14 | Outpatient (CLI) | payer MEDICARE, OTHER, SELFPAY ==
--- NOTE | 2024-12-16 09:18 | EKG_ITS ---
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
[2024-12-16 09:45] LABS: Add Manual Diff / Slide Review NO; Basophils Absolute Auto 100 /uL (0-100); Basophils Percent Auto 0.7 % (0-2); Eosinophils Absolute Auto 200 /uL (0-450); Eosinophils Percent Auto 2.8 % (2-4); Hematocrit 40.7 % (36-46); Hemoglobin 13.5 g/dL (12.0-16.0); Lymphocytes Absolute Auto 3000 /uL (1100-4500); Lymphocytes Percent Auto 39.3 % (25-40); Mean Corpuscular HGB Conc 33.1 % (30-36); Mean Corpuscular Hemoglobin 30.7 PG (26-34); Mean Corpuscular Volume 92.6 fL (80-100); Monocytes Absolute Auto 600 /uL (0-900); Monocytes Percent Auto 7.3 % (3-14); Neutrophils Absolute Auto 3800 /uL (1500-7000); Neutrophils Percent Auto 49.9 % (50-75); Platelet Count 233 X10^3/uL (150-400); Red Cell Distribution Width 12.6 % (11.6-14.8); White Blood Cell Count 7.6 X10^3/uL (4.5-11.0)
[2024-12-16 09:47] LABS: Appearance Urine UA CLEAR; Bilirubin Urine UA NEGATIVE (NEGATIVE); Color Urine UA YELLOW; Glucose Urine UA NEGATIVE (Negative); Ketones Urine UA NEGATIVE (NEGATIVE); Leukocyte Esterase Urine UA 2+ (NEGATIVE); Nitrite Urine UA NEGATIVE (Negative); Occult Blood Urine UA NEGATIVE (Negative); Protein Urine UA NEGATIVE (Negative); Urobilinogen Urine UA 0.2 E.U./dL (0.2)
[2024-12-16 09:48] LABS: pH Urine UA 6.5 (4.5-8.0)
[2024-12-16 09:55] LABS: Hemoglobin A1C% w Est Avg Glu 5.1 % (4.0-6.0)
[2024-12-16 09:57] LABS: Bacteria Urine Occasional (0-1); Culture Indicated Urine Specimen Cultured; RBC Urine 0-1/HPF (0-5/HPF); Squamous Epithelial Cell Urine 1-5 /HPF (0-5/HPF); Urine Volume 10mL (spun); WBC Urine 5-10/HPF (0-5/HPF)
[2024-12-16 10:11] LABS: BUN Creatinine Ratio 14.5 (6-22); Blood Urea Nitrogen 18 mg/dL (7-17); Calcium 10.1 mg/dL (8.4-10.2); Carbon Dioxide 27 mmol/L (22-32); Chloride 103 mmol/L (98-107); Estimated Glomerular Filt Rate 44 mL/min (>60); Glucose 130 mg/dL (70-99); HEMOLYSIS < 15 (0-50); Potassium 4.5 mmol/L (3.4-5.1); Sodium 138 mmol/L (137-145)
== END ==
PROVIDERS: PCP Family Medicine; Referring Provider Orthopaedic Surgery; Visit Provider Orthopaedic Surgery
DX: Z01.818 Encounter for other preprocedural examination (principal); N39.0 Urinary tract infection, site not specified; R73.9 Hyperglycemia, unspecified; Z01.812 Encounter for preprocedural laboratory examination
CPT/HCPCS: 36415; 80048; 81001; 83036; 85025; 87086; 93005; 93010

== ENCOUNTER → 2024-12-27 15:05 | Outpatient (CLI) | payer MEDICARE, OTHER, SELFPAY ==
--- NOTE | 2024-12-27 15:07 | DI.MRI.S_ITS ---
PROCEDURE: MR KNEE LT WO CON INDICATIONS: PAIN LEFT KNEE ? FEMORAL CONDYL FX TECHNIQUE: Noncontrast sagittal PD fast spin echo and T2 fast spin echo with fat saturation, sagittal 3-D FLASH with fat saturation; coronal T1 spin echo and PD fast spin echo with fat saturation, and axial PD fast spin echo with fat saturation through the knee. COMPARISON: [facility] [place], CR, XR KNEE 4+ VIEWS LEFT, 12/15/2024, 15:50. FINDINGS: Image quality: Excellent. Menisci: There is medial extrusion of the medial meniscus. There is linear horizontal and amorphous high signal intensity within the inner, middle, and peripheral thirds of the medial meniscal body and posterior horn, demonstrating superior and inferior articular surface extension, indicating complex multifocal tearing. Vertically oriented linear high T2 signal intensity traverses the inner 3rd of the lateral meniscal body, demonstrating superior and inferior articular surface extension, indicating vertical tearing. Amorphous and linear oblique high T2 signal intensity traverses the inner, middle, and peripheral thirds of the lateral meniscal body and posterior horn, demonstrating inferior articular surface extension, indicating complex tearing. Cruciate ligaments: The anterior and posterior cruciate ligaments appear intact. Medial structures: The medial collateral ligament appears intact. Visualized portions of the pes anserinus tendons appear normal. No abnormal bursal fluid. Lateral structures: The lateral collateral ligament demonstrates mild T2 signal elevation at the femoral origin. The long and short heads of the biceps femoris tendon appear intact. The popliteus tendon appears normal. Iliotibial band appears normal. Anterior structures: Patellar tendon is intact. Linear fluid signal intensity within the central and lateral quadriceps tendon at the patellar insertion site. Moderate T2 signal elevation within the quadriceps tendon at the patellar insertion site. Patellar alignment is normal. No femoral trochlear dysplasia or ventral trochlear prominence. No edema in the infrapatellar fat pad. Bones and cartilage: No bone marrow contusions or fractures. Mild ill-defined T2 signal elevation within the weight-bearing aspects of the medial femoral condyle and medial tibial plateau, consistent with degenerative marrow edema. Moderate tricompartmental periarticular osteophyte formation. Severe articular cartilage loss diffusely overlies the weight-bearing aspects of the medial femoral condyle and medial tibial plateau. Moderate articular cartilage loss overlies the medial and lateral patellar facets. Moderate to high-grade articular cartilage loss overlies the central femoral trochlea. Joint space: There is a moderate knee joint effusion and a trace Swanson's cyst. Normal appearing synovial plicae are incidentally noted. IMPRESSION: 1. Complex tearing of the medial and lateral menisci. 2. Tricompartmental osteoarthritis with associated articular cartilage loss. 3. Quadriceps tendinopathy the with superimposed partial thickness tearing. 4. Low-grade lateral collateral ligament tear. Dictated by: Yair Irizarry M.D. on 12/28/2024 at 10:03 Approved by: Yair Irizarry M.D. on 12/28/2024 at 10:06
== END ==
PROVIDERS: PCP Family Medicine; Referring Provider Orthopaedic Surgery; Visit Provider Orthopaedic Surgery
DX: S83.232A Complex tear of medial meniscus, current injury, left knee, initial encounter (principal); S83.272A Complex tear of lateral meniscus, current injury, left knee, initial encounter; S76.112A Strain of left quadriceps muscle, fascia and tendon, initial encounter; S83.422A Sprain of lateral collateral ligament of left knee, initial encounter; M17.12 Unilateral primary osteoarthritis, left knee; M25.462 Effusion, left knee; M25.562 Pain in left knee; X58.XXXA Exposure to other specified factors, initial encounter
CPT/HCPCS: 73721